=== PATIENT | male | born 1980 | race African-American/Black ===

== ENCOUNTER 2024-02-26 21:02 | Emergency (ER) | payer MEDICAID ==
[~2024-02-26] VITALS: Ht 189.2 cm; Wt 92.0 kg
[2024-02-26 21:53] VITALS: BP 148/103; PULSE 60; RESP 12; TEMP 98.6; O2SAT 100
== END 2024-02-27 00:41 | disposition left against medical advice (07) ==
LOC: ER 21:02
DX: M79.642 Pain in left hand (principal); Z53.21 Procedure and treatment not carried out due to patient leaving prior to being seen by health care provider
CPT/HCPCS: 73130; 99281